=== PATIENT | female | born 1990 | race African-American/Black ===

== ENCOUNTER 2024-01-12 20:37 | Emergency (ER) | payer MEDICAID ==
[~2024-01-12] VITALS: Ht 157.5 cm; Wt 68.0 kg
[2024-01-12 21:26] VITALS: BP 136/75; PULSE 65; RESP 16; TEMP 97.1; O2SAT 100
[2024-01-12] MEDS: ACETAMINOPHEN EXTRA STRENGTH 500 MG TAB PO ONE (22:09)
[2024-01-12 22:23] LABS: APPEARANCE,URINE CLEAR (CLEAR); BILIRUBIN,URINE NEGATIVE (NEGATIVE); BLOOD, URINE NEGATIVE (NEGATIVE); COLOR,URINE YELLOW (YELLOW); LEUKOCYTE ESTERASE ,URINE NEGATIVE (NEGATIVE); NITRITE, URINE NEGATIVE (NEGATIVE); PROTEIN,URINE NEGATIVE (NEGATIVE); UGLUCOSE NEGATIVE (NEGATIVE); UROBILINOGEN,URINE 0.2 EU/dL (0.2 - 1)
[2024-01-12 23:09] LABS: BASOPHILS % (AUTO) 0.5 % (0.0-2.0); EOSINOPHILS % (AUTO) 0.6 % (0.0-4.0); HEMATOCRIT 35.3 % (36-48); HEMOGLOBIN 11.6 g/dL (12.0-16.0); LYMPHOCYTES # (AUTO) 1.2 K/uL (2.5-16.5); LYMPHOCYTES % (AUTO) 33.5 % (20.5-51.1); MEAN CORPUSCULAR HEMOGLOBIN 29 pg (27-31); MEAN CORPUSCULAR HGB CONC 33 g/dL (33-37); MEAN CORPUSCULAR VOLUME 87.5 fL (80-94); MONOCYTES # (AUTO) 0.2 K/uL (0.8-1.0); MONOCYTES % (AUTO) 6.5 % (1.7-9.3); NEUTROPHILS % (AUTO) 58.9 % (42.2-75.2); PLATELET COUNT (AUTO) 207 K/uL (140-450); RED BLOOD CELL COUNT(AUTO) 4.04 MIL/uL (4.20-5.40); RED CELL DISTRIBUTION WIDTH 14.2 % (11.6-13.7); WHITE BLOOD COUNT (AUTO) 3.4 K/uL (4.8-10.8)
[2024-01-13] MEDS ORDERED: ACET-10509 PO (02:33)
[2024-01-13] MEDS: ALUMINUM HYD/MAG/SIMETHICONE 30 ML UDC PO ONE (02:41)
[2024-01-13 03:32] LABS: ANION GAP 17.2 (8-16); CALCIUM 9.8 mg/dL (8.5-10.1); CARBON DIOXIDE 22.3 mmol/L (21-32); CREATININE 0.7 mg/dL (0.6-1.3); POTASSIUM 3.5 mmol/L (3.5-5.1)
[2024-01-13 03:43] LABS: TOTAL BILIRUBIN 0.4 mg/dL (0.0-1.0); TOTAL PROTEIN, SERUM 7.3 g/dL (6.4-8.2)
[2024-01-13] MEDS ORDERED: DOXY1TCP PO (04:09)
[2024-01-13] MEDS ORDERED: ONDANSETRON 4 MG TAB ONE (04:11)
[2024-01-13] MEDS: ONDANSETRON 4 MG ODT PO ONE (04:16)
[2024-01-13 04:44] VITALS: BP 122/74; PULSE 68; RESP 16; TEMP 98; O2SAT 100
== END 2024-01-13 04:44 | disposition home or self-care (01) ==
LOC: MED 20:37
DX: O20.0 Threatened abortion (principal); O34.11 Maternal care for benign tumor of corpus uteri, first trimester; Z3A.01 Less than 8 weeks gestation of pregnancy; Z79.899 Other long term (current) drug therapy
CPT/HCPCS: 36415; 76817; 80053; 81003; 81025; 83690; 84702; 85025; 86900; 86901; 99285; Q0092; Q0162

== ENCOUNTER 2024-01-31 07:42 | Emergency (ER) | payer SELFPAY ==
[~2024-01-31] VITALS: Ht 157.5 cm; Wt 65.9 kg
[~2024-01-31 07:42] MED LIST: ACET-10509 PO; DOXY1TCP PO
[2024-01-31 07:43] VITALS: BP 122/77; PULSE 75; RESP 18; TEMP 98.4; O2SAT 97
[2024-01-31 08:15] VITALS: O2SAT 97
[2024-01-31] MEDS: NACL 0.9% 1,000 ML IV SCH (08:18)
[2024-01-31] MEDS: ONDANSETRON 4 MG/2 ML VIAL IVP ONE (08:26)
[2024-01-31] MEDS: FAMOTIDINE 20 MG/2 ML VIAL IVP ONE (08:26)
[2024-01-31 08:41] LABS: BASOPHILS % (AUTO) 0.4 % (0.0-2.0); EOSINOPHILS % (AUTO) 0.8 % (0.0-4.0); HEMATOCRIT 32.8 % (36-48); HEMOGLOBIN 11.2 g/dL (12.0-16.0); LYMPHOCYTES # (AUTO) 0.9 K/uL (2.5-16.5); LYMPHOCYTES % (AUTO) 32.2 % (20.5-51.1); MEAN CORPUSCULAR HEMOGLOBIN 29 pg (27-31); MEAN CORPUSCULAR HGB CONC 34 g/dL (33-37); MEAN CORPUSCULAR VOLUME 86.3 fL (80-94); MONOCYTES # (AUTO) 0.2 K/uL (0.8-1.0); MONOCYTES % (AUTO) 7.1 % (1.7-9.3); NEUTROPHILS # (AUTO) 1.6 K/uL (1.8-7.7); NEUTROPHILS % (AUTO) 59.5 % (42.2-75.2); PLATELET COUNT (AUTO) 216 K/uL (140-450); WHITE BLOOD COUNT (AUTO) 2.8 K/uL (4.8-10.8)
[2024-01-31] MEDS: ACETAMINOPHEN 325 MG TAB PO ONE (08:49)
[2024-01-31 08:57] LABS: ANION GAP 15.9 (8-16); CALCIUM 9.3 mg/dL (8.5-10.1); CREATININE 0.6 mg/dL (0.6-1.3)
[2024-01-31 09:03] LABS: ALBUMIN 3.7 g/dL (3.4-5.0); BILIRUBIN,DIRECT 0.1 mg/dL (0.0-0.3); TOTAL BILIRUBIN 0.6 mg/dL (0.0-1.0); TOTAL PROTEIN, SERUM 7.5 g/dL (6.4-8.2)
[2024-01-31 09:17] LABS: POTASSIUM 2.9 mmol/L (3.5-5.1)
[2024-01-31] MEDS: POTASSIUM CHLORIDE 10 MEQ TABER PO ONE (09:43)
[2024-01-31] MEDS: MAG SULF 2000 MG/WATER PREMIX 50 ML IV ONE (09:44)
[2024-01-31 09:48] LABS: BILIRUBIN,URINE 1+ (NEGATIVE); BLOOD, URINE NEGATIVE (NEGATIVE); COLOR,URINE YELLOW (YELLOW); LEUKOCYTE ESTERASE ,URINE NEGATIVE (NEGATIVE); NITRITE, URINE NEGATIVE (NEGATIVE); PH,URINE 7.5 (5.0-9.0); PROTEIN,URINE NEGATIVE (NEGATIVE); UGLUCOSE NEGATIVE (NEGATIVE); UROBILINOGEN,URINE 0.2 EU/dL (0.2 - 1)
[2024-01-31] MEDS: NACL 0.9% 1,000 ML IV ONE (09:48)
[2024-01-31 09:51] LABS: ICTOTEST NEGATIVE (NEGATIVE); RBC,URINE 0-5 /HPF (0-5); WBC,URINE 0-5 /HPF (0-5)
[2024-01-31 09:52] LABS: APPEARANCE,URINE SLIGHTLY HAZY (CLEAR); BACTERIA,URINE FEW /HPF (None Seen); SQUAMOUS EPITHELIAL CELL,UR 4-10 (MOD) /LPF (0-3 (FEW))
[2024-01-31] MEDS: KCL 20 MEQ IN 100 mL PREMIX 100 ML IV ONE (09:53)
[2024-01-31 10:20] VITALS: O2SAT 100
[2024-01-31 12:01] VITALS: BP 112/68; PULSE 64; RESP 13; TEMP 98.4; O2SAT 99
[2024-01-31] MEDS ORDERED: ONDA-188 PO (13:01)
== END 2024-01-31 13:23 | disposition home or self-care (01) ==
LOC: MED 07:42
DX: O21.0 Mild hyperemesis gravidarum (principal); Z3A.10 10 weeks gestation of pregnancy; Z79.899 Other long term (current) drug therapy
CPT/HCPCS: 36415; 80048; 80076; 81001; 83690; 85025; 96361; 96365; 96366; 96368; 96375; 99285; J2405; J3475; J3480; J3490; J7030

== ENCOUNTER 2024-03-13 08:05 | Emergency (ER) | payer MEDICAID, OTHER ==
[~2024-03-13] VITALS: Ht 157.5 cm; Wt 65.8 kg
[~2024-03-13 08:05] MED LIST changes: +ONDA-188 PO
[2024-03-13 08:18] VITALS: BP 125/79; PULSE 84; RESP 20; TEMP 97.9; O2SAT 98
[2024-03-13] MEDS ORDERED: LACT-191 PO (09:11)
[2024-03-13 09:43] VITALS: BP 125/79; PULSE 84; RESP 20; TEMP 97.9; O2SAT 98
== END 2024-03-13 09:43 | disposition home or self-care (01) ==
LOC: MED 08:05
DX: O99.612 Diseases of the digestive system complicating pregnancy, second trimester (principal); K59.00 Constipation, unspecified; Z3A.15 15 weeks gestation of pregnancy; Z79.1 Long term (current) use of non-steroidal anti-inflammatories (NSAID); Z79.899 Other long term (current) drug therapy
CPT/HCPCS: 99283